=== PATIENT | female | born 1965 | race Caucasian/White ===

== ENCOUNTER 2017-08-20 22:25 | Emergency (ER) | payer OTHER ==
[~2017-08-20] VITALS: Ht 170.2 cm; Wt 94.3 kg
[~2017-08-20 22:25] MED LIST: AUGMENTIN 875875 MG PO; HYDROCODON-ACE1 EAC7 PO; LORTAB 5-500 T1 EAC1 PO; NOHOMEMEDICATIONS
[2017-08-20 23:31] VITALS: BP 132/82
[2017-08-21 16:10] LABS: HEPATITIS B SURFACE AG Negative (Negative)
[2017-08-21 23:08] LABS: HIV-1/HIV-2 ANTIBODY Non Reactive (Non Reactive)
== END 2017-08-20 23:34 | disposition home or self-care (01) ==
LOC: M.ERS 22:25
PROVIDERS: Physician Assistant
DX: S69.81XA Other specified injuries of right wrist, hand and finger(s), initial encounter (principal); Z91.040 Latex allergy status; W46.0XXA Contact with hypodermic needle, initial encounter; Y93.89 Activity, other specified; Y92.89 Other specified places as the place of occurrence of the external cause; Y99.8 Other external cause status